=== PATIENT | male | born 1995 | race Caucasian/White ===

== ENCOUNTER 2017-04-11 21:44 | Inpatient (IN) | payer BC ==
[~2017-04-11] VITALS: Ht 185.4 cm; Wt 61.2 kg
[2017-04-11 22:14] LABS: EOSINOPHIL (%) 0.2 % (0-5); HEMATOCRIT 40.3 % (38.0-50.0); IMMATURE GRANULOCYTE (%) 0.4 % (0.0-0.7); IMMATURE GRANULOCYTE COUNT 0.1 K/uL; INSTRUMENT ABS NEUTROPHIL CT 11.2 K/uL; LYMPHOCYTE COUNT 1.9 K/uL (1.0-2.8); MCH 30.9 PG (29.0-34.0); MCHC 35.7 G/DL (30.0-36.0); MCV 86.5 FL (86-99); MEAN PLAT.VOLUME 9.3 uM^3 (9.0-12.4); MONOCYTE (%) 10.5 % (3-12); MONOCYTE COUNT 1.6 K/uL (0-0.8); NEUTROPHIL (%) 75.8 % (45-76); NEUTROPHIL COUNT 11.2 K/uL (1.8-6.4); PLATELET COUNT 285 K/uL (156-360); RBC DIS.WIDTH-CV 11.9 % (11.8-14.6); RBC DIS.WIDTH-SD 37.5 % (39-53); RED BLOOD COUNT 4.66 M/uL (4.00-5.50); WHITE BLOOD COUNT 14.8 K/uL (4.1-10.2)
[2017-04-11 22:17] LABS: POINT-OF-CARE METER ID UU13113702
[2017-04-11 22:23] LABS: INTER. NORMALIZED RATIO 1.2; PROTHROMBIN TIME 12.7 (9.2-11.2); PTT 26.4 (25-32)
[2017-04-11 22:36] LABS: TROP-I INTERPRETATION NEGATIVE; TROPONIN-I < 0.01 ng/mL (0.0-0.30)
[2017-04-11 22:40] LABS: CHLORIDE 94 mEq/L (99-109); SODIUM 132 mEq/L (136-147)
[2017-04-11 22:43] LABS: GLUCOSE 139 mg/dL (70-99)
[2017-04-11 22:44] LABS: ANION GAP 19 MEQ/L (2-14)
[2017-04-11 22:45] LABS: TOTAL BILIRUBIN 3.4 mg/dL (0.0-1.0)
[2017-04-11 22:46] LABS: ALKALINE PHOSPHATASE 81 IU/L (3-129); GFR ESTIMATE (CALCULATED) > 59 mL/min/
[2017-04-11 22:47] LABS: UREA NITROGEN (BUN) 12 mg/dL (9-23)
[2017-04-11 22:49] LABS: CREATINE KINASE 430 IU/L (1-294); TOTAL CK 430 IU/L (1-294)
[2017-04-11 22:55] LABS: CK-MB 3.6 ng/mL (0.0-4.9)
[2017-04-11 23:32] LABS: HDL CHOLESTEROL 68 MG/DL (Desirable>=40); LDL CHOLESTEROL 55 mg/dL (Desirable<100); NON-HDL CHOLESTEROL 65 mg/dL (Desirable<160); TOTAL CHOLESTEROL 133 mg/dL (Desirable<200); TRIGLYCERIDES 51 MG/DL (Normal: <150)
[2017-04-11 23:57] LABS: CARBOXY HGB 1.2 % (0-5); METHEMOGLOBIN 1.5 % (0-1.5); PO2 149 mm Hg (80-100); pH 7.35 (7.35-7.45)
[2017-04-12 00:03] LABS: SITE RR
[2017-04-12 00:04] LABS: COMMENTS - BLOOD GASES A+C+; DEVICE NC; O2 FLOW 2 L/MIN; PCO2 < 20 mm Hg (35-45); TOTAL RESP RATE 21 resp/min
[2017-04-12 00:58] LABS: ADD MIUA? YES; BILIRUBIN NEGATIVE; BLOOD SMALL; COLOR STRAW ((YELLOW)); GLUCOSE (STRIP) NEGATIVE; KETONES 5; LEUKOCYTES NEGATIVE; NITRITE NEGATIVE; PROTEIN (STRIP) NEGATIVE; SPECIFIC GRAVITY 1.016 (1.000-1.030); UROBILINOGEN 0.2 MG/DL (0.2-1.0)
[2017-04-12 01:01] LABS: BACTERIA NONE SEEN /HPF; EPITHELIAL CELLS NONE SEEN /HPF; MUCUS NONE SEEN /LPF; RED BLOOD CELLS 0-5 /HPF (0-5); UCUL ADDED? NO; WHITE BLOOD CELLS 0-5 /HPF (0-5)
[2017-04-12 01:09] LABS: AMPHETAMINE PRESUMPTIVE POSITIVE (500 ng/mL); BARBITURATES NEGATIVE (200 ng/mL); BENZODIAZEPINES NEGATIVE (150 ng/mL); COCAINE NEGATIVE (150 ng/mL); INTERNAL CONTROLS VALID? YES; METHADONE NEGATIVE (200 ng/mL); METHAMPHETAMINE NEGATIVE (500 ng/mL); OPIATES (MORPHINE) NEGATIVE (100 ng/mL); OXYCODONE NEGATIVE (100 ng/mL); PHENCYCLIDINE NEGATIVE (25 ng/mL); PROPOXYPHENE NEGATIVE (300 ng/mL); THC CANNABINOIDS NEGATIVE (50 ng/mL); TRICYCLIC ANTIDEPRESSANTS NEGATIVE (300 ng/mL)
[2017-04-12 01:10] LABS: ADD MEDTOX COMMENT Y
[2017-04-12 02:19] LABS: SALICYLATE < 3.0 MG/DL (15-30); SERUM ETHYL ALCOHOL < 10 mg/dL
[2017-04-12 03:37] LABS: DIRECT BILIRUBIN 0.6 mg/dL (0.0-0.3)
[2017-04-12 04:14] VITALS: BP 125/71
[2017-04-12 05:42] LABS: HEMATOCRIT 36.8 % (38.0-50.0); MCH 31.7 PG (29.0-34.0); MCHC 35.3 G/DL (30.0-36.0); MCV 89.8 FL (86-99); MEAN PLAT.VOLUME 9.6 uM^3 (9.0-12.4); PLATELET COUNT 257 K/uL (156-360); RBC DIS.WIDTH-CV 12.4 % (11.8-14.6); RBC DIS.WIDTH-SD 40.4 % (39-53); WHITE BLOOD COUNT 13.4 K/uL (4.1-10.2)
[2017-04-12 06:11] LABS: ALKALINE PHOSPHATASE 65 IU/L (3-129); ANION GAP 11 MEQ/L (2-14); CHLORIDE 102 MEQ/L (99-109); DIRECT BILIRUBIN 0.6 mg/dL (0.0-0.3); GFR ESTIMATE (CALCULATED) > 59 mL/min/; POTASSIUM 3.6 MEQ/L (3.7-5.4); SAMPLE HEMOLYSIS CHECK 0; SAMPLE ICTERIC CHECK 1; SAMPLE LIPEMIA CHECK 0; SODIUM 133 MEQ/L (136-147); TOTAL BILIRUBIN 2.9 MG/DL (0.0-1.0); UREA NITROGEN (BUN) 11 mg/dL (9-23)
[2017-04-12 06:12] LABS: GLUCOSE 88 mg/dL (70-99)
[2017-04-12 07:10] VITALS: BP 112/53
[2017-04-12 07:40] LABS: Estimated Average Glucose 108 mg/dL (70-123); HEMOGLOBIN A1c (GLYCOHEMOGLOB) 5.4 % HGB (Below 5.7)
[2017-04-12 09:53] LABS: CREATINE KINASE 550 IU/L (1-294)
[2017-04-12 11:45] VITALS: BP 112/60
[2017-04-12 15:10] VITALS: BP 107/53
[2017-04-12 15:40] LABS: ANION GAP 10 MEQ/L (2-14); CHLORIDE 110 MEQ/L (99-109); GFR ESTIMATE (CALCULATED) > 59 mL/min/; GLUCOSE 84 mg/dL (70-99); POTASSIUM 3.9 MEQ/L (3.7-5.4); SAMPLE HEMOLYSIS CHECK 0; SAMPLE ICTERIC CHECK 1; SAMPLE LIPEMIA CHECK 0; UREA NITROGEN (BUN) 11 mg/dL (9-23)
[2017-04-12 15:41] LABS: SODIUM 142 MEQ/L (136-147)
[2017-04-12 19:15] VITALS: BP 109/58
[2017-04-12 23:02] VITALS: BP 114/54
[2017-04-13 03:25] VITALS: BP 108/67
[2017-04-13 04:07] VITALS: BP 108/67
[2017-04-13 05:42] LABS: EOSINOPHIL COUNT 0.1 K/uL (0-0.3); HEMATOCRIT 34.5 % (38.0-50.0); IMMATURE GRANULOCYTE (%) 0.1 % (0.0-0.7); INSTRUMENT ABS NEUTROPHIL CT 4.7 K/uL; LYMPHOCYTE COUNT 2.4 K/uL (1.0-2.8); MCH 32.1 PG (29.0-34.0); MCHC 34.5 G/DL (30.0-36.0); MEAN PLAT.VOLUME 9.6 uM^3 (9.0-12.4); MONOCYTE (%) 9.2 % (3-12); MONOCYTE COUNT 0.7 K/uL (0-0.8); NEUTROPHIL (%) 58.6 % (45-76); NEUTROPHIL COUNT 4.7 K/uL (1.8-6.4); PLATELET COUNT 211 K/uL (156-360); RBC DIS.WIDTH-CV 13.2 % (11.8-14.6); RBC DIS.WIDTH-SD 45.1 % (39-53); RED BLOOD COUNT 3.71 M/uL (4.00-5.50)
[2017-04-13 07:00] LABS: ANION GAP 8 MEQ/L (2-14); CHLORIDE 109 MEQ/L (99-109); GFR ESTIMATE (CALCULATED) > 59 mL/min/; GLUCOSE 80 mg/dL (70-99); POTASSIUM 4.5 MEQ/L (3.7-5.4); SAMPLE HEMOLYSIS CHECK 0; SAMPLE ICTERIC CHECK 0; SAMPLE LIPEMIA CHECK 0; SODIUM 142 MEQ/L (136-147); UREA NITROGEN (BUN) 11 mg/dL (9-23)
[2017-04-13 07:13] LABS: CREATINE KINASE 1317 IU/L (1-294)
[2017-04-13 08:15] VITALS: BP 104/52
[2017-04-13 11:41] VITALS: BP 111/53
== END 2017-04-13 15:25 | disposition home or self-care (01) | DRG 100 ==
LOC: EME 21:44 → 4EAST 04-12 02:25 → EDOF 04-12 02:25 → 4EAST 04-12 04:02
PROVIDERS: Emergency Medicine; Hospitalist; Internal Medicine
DX: R56.9 Unspecified convulsions (principal); G93.40 Encephalopathy, unspecified; N17.9 Acute kidney failure, unspecified; E87.2 Acidosis; E87.1 Hypo-osmolality and hyponatremia; E87.3 Alkalosis; Z68.1 Body mass index [BMI] 19.9 or less, adult; F05 Delirium due to known physiological condition; E87.6 Hypokalemia; F90.9 Attention-deficit hyperactivity disorder, unspecified type; E86.0 Dehydration; M60.9 Myositis, unspecified; E87.8 Other disorders of electrolyte and fluid balance, not elsewhere classified; R00.1 Bradycardia, unspecified
CPT/HCPCS: 36600; 70450; 70496; 70498; 70551; 71020; 71275; 74176; 80048; 80048 91; 80053; 80061; 80076; 81003; 82248; 82550; 82550 91; 82553; 82803; 82948; 83036; 84132 91; 84484; 84999; 85025; 85027; 85610; 85730; 93005; 95819; 99281; 99285; G0480; J2060; J2405; J3480; J7030

== ENCOUNTER 2017-04-15 17:24 | Inpatient (IN) | payer BC ==
[~2017-04-15] VITALS: Ht 185.4 cm; Wt 62.0 kg
[2017-04-15 21:07] LABS: ADD MIUA? NO; BILIRUBIN NEGATIVE; BLOOD NEGATIVE; COLOR STRAW ((YELLOW)); GLUCOSE (STRIP) NEGATIVE; KETONES NEGATIVE; LEUKOCYTES NEGATIVE; NITRITE NEGATIVE; PROTEIN (STRIP) NEGATIVE; SPECIFIC GRAVITY 1.006 (1.000-1.030); UCUL ADDED? NO; UROBILINOGEN 0.2 MG/DL (0.2-1.0)
[2017-04-16 08:07] LABS: AMPHETAMINES QUANT VALUE 0 NG/ML; BARBITUATES QUANT VALUE 0 NG/ML; BENZODIAZEPINES QUANT VALUE 0 NG/ML; BENZODIAZEPINES, URINE SCREEN Negative (200 ng/mL); MARIJUANA QUANT VALUE 0 NG/ML; OPIATES QUANTITATIVE VALUE 0 NG/ML; PHENCYCLIDINE QUANT VALUE 0 NG/ML
[2017-04-16 08:20] VITALS: BP 126/76
[2017-04-16 16:06] VITALS: BP 121/60
== END 2017-04-16 17:35 | disposition home or self-care (01) | DRG 558 ==
LOC: EME 17:24 → EDOF 23:16 → 2EAST 04-16 00:47
PROVIDERS: Hospitalist
DX: M62.82 Rhabdomyolysis (principal); R56.9 Unspecified convulsions; F90.9 Attention-deficit hyperactivity disorder, unspecified type; E86.0 Dehydration; F17.200 Nicotine dependence, unspecified, uncomplicated; Z79.899 Other long term (current) drug therapy
CPT/HCPCS: 36415; 80053; 80306 90; 81003; 82550; 85027; 99281; 99285; J1650; J7030

== ENCOUNTER → 2017-04-17 | Outpatient (CLI) | payer BC ==
[2017-04-17 11:38] LABS: ANION GAP 10 MEQ/L (2-14); CHLORIDE 102 MEQ/L (99-109); CREATINE KINASE 5195 IU/L (1-294); GFR ESTIMATE (CALCULATED) > 59 mL/min/; GLUCOSE 78 mg/dL (70-99); POTASSIUM 3.9 MEQ/L (3.7-5.4); SAMPLE HEMOLYSIS CHECK 0; SAMPLE ICTERIC CHECK 0; SAMPLE LIPEMIA CHECK 0; SODIUM 138 MEQ/L (136-147); UREA NITROGEN (BUN) 10 mg/dL (9-23)
== END | disposition home or self-care (01) ==
LOC: LAB 10:26
PROVIDERS: Pediatrics
DX: M62.82 Rhabdomyolysis (principal)
CPT/HCPCS: 80048; 82550